=== PATIENT | male | born 1980 | race African-American/Black ===

== ENCOUNTER 2024-09-30 10:20 | Outpatient (CLI) | payer BC, SELFPAY ==
--- NOTE | ~2024-09-30 | XR_ITS ---
Clinical Indication: Shortness of breath PA and lateral views of the chest: Comparison: None Findings: The lungs are clear, without evidence of focal consolidation or pleural effusion. Cardiome diastinal silhouette is within normal limits. Bones and soft tissues are unremarkable. Impression: Normal chest. Reviewed, dictated and finalized at [facility]. Impression: Normal chest.
== END 2024-09-30 10:21 | disposition home or self-care (01) ==
LOC: MICIMG 10:21
PROVIDERS: PCP Family Medicine; Visit Provider Physician Assistant
DX: R06.02 Shortness of breath (principal)
CPT/HCPCS: 71046

== ENCOUNTER 2024-10-15 13:02 | Outpatient (CLI) | payer BC, SELFPAY ==
--- OUTSIDE RECORDS SUMMARY | 2024-10-15 13:15 | XMS_ITS | Referral Summary ---
Author Organization [facility] Address [address] [place] [id number] Care Team Providers Care Air Value Tester Name Role Phone Yimi Mark MD Primary Care Provider Encounters Date Type Department Care Team Description 09/04/2024 8:09 AM CDT - 09/04/2024 10:34 AM T Emergency [facility] Emergency Department [address] [place] [address] [phone] Leg pain, anterior, left (Primary Dx) Discharge Disposition: Discharge to home or self care 09/02/2024 10:48 AM CDT - 09/02/2024 1:41 PM T Emergency [facility] Emergency Department [address] [place] [phone] Wheezing (Primary Dx); Leukocytosis, unspecified type; Elevated blood pressure reading Discharge Disposition: Discharge to home or self care from Last 3 Months Allergies Active Allergy Reactions Criticality Noted Date Comments Shellfish Containing Products Shortness of breath High 07/05/2023 Medications albuterol HFA (PROVENTIL HFA,VENTOLIN HFA,PROAIR HFA) 90 mcg/actuation inhaler Inhale 2 puffs every 4 (four) hours as needed for wheezing 1 each 4 Active fluticasone propionate (FLOVENT HFA) 44 mcg/actuation inhaler Inhale 1 puff daily Rinse mouth with water after use. Do not swallow. 1 each 5 Active amLODIPine (NORVASC) 5 mg tablet Take 1 tablet (5 mg total) by mouth daily 30 tablet 5 03/24/20 26 Active ipratropium-alb uteroL (DUO-NEB) 0.5-2.5 mg/3 mL nebulizer solution Take 3 mL by nebulization every 6 (six) hours as needed for wheezing 30 mL Active ibuprofen (ADVIL,MOTRIN) 800 mg tablet Take 1 tablet (800 mg total) by mouth 3 (three) times a day 21 tablet Active Immunizations Immunization Administration Dates Next Due Tdap 12/01/2022 Social History Tobacco Use Types Packs/Day Years Used Date Smoking Tobacco: Never Assessed Personal Safety Answer Date Recorded Have you ever been in or are you currently in a harmful physical or emotional relationship or is someone making you feel afraid or unsafe? 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 Gender Identity Not on file Sexual Orientation Not on file Last Filed Vital Signs Vital Sign Reading Time Taken Comments Blood Pressure 151/87 09/04/2024 10:00 AM CDT Pulse 55 09/04/2024 10:00 AM CDT Temperature 36.7 C (98 F) 09/04/2024 7:29 AM CDT Respiratory Rate 19 09/04/2024 10:00 AM CDT Oxygen Saturation 97% 09/04/2024 10:00 AM CDT Inhaled Oxygen Concentration - - Weight 128 kg (282 lb 3 oz) 09/04/2024 7:29 AM C DT Height 185.4 cm (6' 1 ) 09/02/2024 8:57 AM CDT Body Mass Index 37.23 09/02/2024 8:57 AM CDT Plan of Treatment Not on file Procedures Procedure Name Priority Date/Time Associated Diagnosis Comments XR TIBIA FIBULA LEFT 2 VIEWS ED 09/04/2024 7:56 AM CDT MANUAL DIFFERENTIAL STAT 09/02/2024 1 0:50 AM CDT EGFR STAT 09/02/2024 10:50 AM CDT TROPONIN T HIGH-SENSITIVITY SERIES (BASELINE, 2HR, 4HR, 6HR) STAT 09/02/2024 10:50 AM CDT COMPREHENSIVE METABOLIC PANEL STAT 09/02/2024 10:50 AM CDT CBC WITH AUTO DIFFERENTIAL STAT 09/02/2024 10:50 AM CDT ECG 12-LEAD Routine 09/02/2024 10:44 AM CDT XR CHEST 1 VIEW ED 09/02/2024 9:20 AM CDT INFLUENZA A/B, RSV, AND COVID-19 PCR STAT 09/02/2024 9:04 AM CDT from Last 3 Months Results * XR Tibia Fibula Left 2 Views (09/04/2024 7:56 AM CDT) Anatomical Region Laterality Modality Lower Extremities, Lower Leg Left Com puted Radiography 09/04/2024 7:59 AM CDT Narrative 09/04/2024 8:22 AM CDT EXAM DESCRIPTION: XR TIBIA FIBULA LEFT 2 VIEWS REASON FOR STUDY: Left lower leg pain from 09/03/2024. TECHNIQUE: AP and lateral views of the left tibia and fibula COMPARISON: None FINDINGS: BONES/JOINTS: No fracture. There is a well-circumscribed 0.9 x 0.4 cm lesion in the distal fibula. No aggressive features are seen. There is an internal chondroid matrix. SOFT TISSUES: Within normal limits. IMPRESSION: No acute osseous abnormality. Well-circumscribed 0.9 x 0.4 cm lesion in the distal fibula with nonaggressive, benign features. This could represent fibrous dysplasia or a old healing osseous fibroma. THIS IS AN ELECTRONICALLY VERIFIED FINAL REPORT 09/04/2024 8:22 AM - Electronically signed by Papi Stewart M.D. LB: LADARIUS Report ID: [id number] Reading Location: [id number] Procedure Note Papi Stewart MD - 09/04/2024 EXAM DESCRIPTION: XR TIBIA FIBULA LEFT 2 VIEWS REASON FOR STUDY: Left lower leg pain from 09/03/2024. TECHNIQUE: AP and lateral views of the left tibia and fibula COMPARISON: None FINDINGS: BONES/JOINTS: No fracture. There is a well-circumscribed 0.9x 0.4 cm lesion in the distal fibula. No aggressive features are seen.There is an internal chondroid matrix. SOFT TISSUES: Within normal limits. IMPRESSION: No acute osseous abnormality. Well-circumscribed 0.9 x 0.4 cm lesion in the distal fibula with nonaggressive, benign features. This could represent fibrous dysplasia ora old healing osseous fibroma. THIS IS AN ELECTRONICALLY VERIFIED FINAL REPORT 09/04/2024 8:22 AM - Electronically signed by Papi Stewart M.D. LB: LADARIUS Report ID: [id number] Reading Location: [place] [address] us Jesus Hernandez DO IMG XR PROCEDURES Final Res ult * Troponin T high-sensitivity series (baseline, 2hr, 4hr, 6hr) (09/02/2024 10:50 AM CDT) [facility] Trop T hs 7 <=22 ng/L Comment: Interpretive Data For further hscTnT resources including the diagnostic algorithm and an aid in interpretation, copy and paste this link: https://nrl.testcatalog.org/show/hsTrop Current Interpretive Data last revised 2020. Testing performed by: [facility], [address] [place] [address]., [id number] Blood 09/02/2024 10:5 0 AM CDT 09/02/2024 10:55 AM CDT us Johanne VALLES LAB BLOOD ORDERABLES Final Resu lt [place] [address] [facility] Department [place] [address] * eGFR (09/02/2024 10:50 AM CDT) Pathologist [facility] [place] eGFR >90 >=60 mL/min/1. 73 m2 Comment: Interpretive Data Reference Interval Normal >/= 90 mL/min/1.73m2 Mildly decreased* 60 - 89 mL/min/1.73m2 Mildly to moderately decreased 45 - 59 mL/min/1.73m2 Moderately to severely decreased 30 - 44 mL/min/1.73m2 Severely decreased 15 - 29 mL/min/1.73m2 Kidney Failure < 15 mL/min/1.73m2 *Relative to young adult level Estimated glomerular filtration rate is determined by the 2020 CKD-EPI equation recommended by the National Kidney Foundation (A Unifying Approach to GFR Estimation: Recommendations of the NKF-ASK Task Force on Reassessing the Inclusion of Race in Diagnosing Kidney Disease, JASN 2020). The CKD-EPI equation should not be used for patients with unstable renal function and has not been validated in children and those over 70. Current interpretive data was last reviewed 2021. Testing performed by: [address] [address] Blood 09/02/2024 10:5 0 AM CDT 09/02/2024 10:55 AM CDT us Johanne VALLES LAB BLOOD ORDERABLES Final Resu lt [place] [address] [facility] Department [place] [address] * (ABNORMAL) CBC with auto differential (09/02/2024 10:50 AM CDT) Pathologist [facility] [place] WBC 17.6(H) 3.8 - 9.9 K/cumm Comment:Testing performed by : [address] [address] Hgb 15.1 13.0 - 17.5 g/dL [place] Comment:Testing performed by : [address] [address] Hct 43.7 38.9 - 50.3 % [place] Comment:Testing performed by : [address] [address] Plt 219 150 - 400 K/cumm [place] Comment:Testing performed by : [address] [address] MPV 10.2 9.1 - 12.3 fL [place] Comment:Testing performed by : [address], [address] RBC 5.32 4.30 - 5.80 M/cumm [place] Comment:Testing performed by : [address], [address] MCV 82.1 81.3 - 96.4 fL [place] Comment:Testing performed by : [address], [address] MCH 28.4 27.1 - 33.3 pg [place] Comment:Testing performed by : [address], [address] MCHC 34.6 32.3 - 35.7 g/dL [place] Comment:Testing performed by : [address], [address] RDW CV 12.1 11.1 - 14.9 % [place] Comment:Testing performed by : [address], [address] RDW SD 36.1 35.7 - 48.1 fL [place] Comment:Testing performed by : [address], [address] NRBC abs 0.02(H) 0.00 - 0.01 K/cumm [place] Comment:Testing performed by : [address], [address] Blood 09/02/2024 10:5 0 AM CDT 09/02/2024 10:55 AM CDT us Johanne VALLES LAB BLOOD ORDERABLES Edited Res ult - Final [place] [address] [facility] Department [place] [address] * (ABNORMAL) Manual Differential (09/02/2024 10:50 AM CDT) Differential Manual Comment:Testing performed by : [address] [address] Cells Counted 100 [facility] Comment:Testing performed by : [address], [place]., [address] Neutrophil abs 5.3 1.5 - 6.5 K/cumm [facility] Comment:Testing performed by : [address], [place]., [address] Imm gran abs 0.0 0.0 - 0.1 K/cumm [facility] Comment:Testing performed by : [address], [place]., [address] Lymphocyte abs 11.6(H) 0.8 - 3.3 K/cumm [facility] Comment:Testing performed by : [address], [place]., [address] Monocyte abs 0.2 0.2 - 0.8 K/cumm [facility] Comment:Testing performed by : [address], [place]., [address] Eosinophil abs 0.5 0.0 - 0.5 K/cumm [facility] Comment:Testing performed by : [address] [address] Neutrophil pct 30.0 % [facility] Comment: Interpretive Data Percent cell count reference ranges are not reported, since discordance with absolute values may lead to misinterpretation of CBC data. Current Interpretive Data was last revised on 2017. Testing performed by: [address] [address] Lymphocyte pct 24.0 % [facility] Comment: Interpretive Data Percent cell count reference ranges are not reported, since discordance with absolute values may lead to misinterpretation of CBC data. Current Interpretive Data was last revised on 2017. Testing performed by: [address] [address] Monocyte pct 1.0 % [facility] Comment: Interpretive Data Percent cell count reference ranges are not reported, since discordance with absolute values may lead to misinterpretation of CBC data. Current Interpretive Data was last revised on 2017. Testing performed by: [address] [address] Eosinophil pct 3.0 % [place] Comment: Interpretive Data Percent cell count reference ranges are not reported, since discordance with absolute values may lead to misinterpretation of CBC data. Current Interpretive Data was last revised on 2017. Testing performed by: [facility], [address] [place] [address], [place]., [address] Variant lymph pct 42.0(H) 0.0 - 0.0 % [place] Comment:Testing performed by : [address], [place]., [address] RBC morphology Consistent with RBC Indicies [place] Comment:Testing performed by : [address] [address] Platelet estimate Adequate [place] Comment:Testing performed by : [address], [place]., [address] Blood 09/02/2024 10:5 0 AM CDT 09/02/2024 10:55 AM CDT us Johanne VALLES LAB BLOOD ORDERABLES Final Resu lt [place] [facility] Department [place] [address] * Comprehensive metabolic panel (09/02/2024 10:50 AM CDT) Sodium 141 135 - 145 mmol/L Comment:Testing performed by : [address] [address] Potassium, pl 4.2 3.3 - 4.9 mmol/L [place] Comment:Testing performed by : [address] [address] Chloride 107 97 - 110 mmol/L [place] Comment:Testing performed by : [address] [address] CO2 27 22 - 32 mmol/L [place] Comment:Testing performed by : [address] [address] Anion gap 7 2 - 15 mmol/L [place] Comment:Testing performed by : [address] [address] BUN 14 6 - 25 mg/dL [place] Comment:Testing performed by : [address] [address] Creatinine 0.92 0.80 - 1.30 mg/dL [place] Comment:Testing performed by : [address] [address] Glucose 112 70 - 199 mg/dL [place] Comment: Interpretive Data Fasting glucose >/= 126 mg/dl is diagnostic for diabetes. Fasting is defined as no caloric intake for at least 8 hours. Fasting glucose between 100 mg/dl to 125 mg/dl is diagnostic of prediabetes. In a patient with classic symptoms of hyperglycemia or hyperglycemic crisis, a random glucose >/= 200 mg/dl is diagnostic for diabetes. In the absence of unequivocal hyperglycemia, results should be confirmed by repeat testing. The classification and Diagnosis of Diabetes Diabetes Care 2021; 46: S19-S40. Current interpretive data was last revised 2022. Testing performed by: [address] [address] Calcium 9.7 8.5 - 10.3 mg/dL [place] Comment:Testing performed by : [address] [address] Bilirubin, total 0.7 0.1 - 1.2 mg/dL [place] Comment:Testing performed by : [address] [address] Protein, pl 7.5 6.5 - 8.5 g/dL [place] Comment:Testing performed by : [address] [address] Albumin 4.5 3.5 - 5.0 g/dL [place] Comment:Testing performed by : [address] [address] Alk phos 75 40 - 130 Units/L [place] Comment:Testing performed by : [address] [address] ALT 13 7 - 55 Units/L [place] Comment:Testing performed by : [address] [address] AST 17 10 - 50 Units/L [place] Comment:Testing performed by : [facility], [address] [place] [address], [place]., [address] Blood 09/02/2024 10:5 0 AM CDT 09/02/2024 10:55 AM CDT Johanne VALLES LAB BLOOD ORDERABLES Final Resu lt Performing Organization Address City/[facility]/ZIP Co de Phone Number [place] [address] [facility] Department [place] [address] * ECG 12 lead (09/02/2024 10:44 AM CDT) Ventricular Rate EKG/Min 79 BPM [facility] Atrial Rate 79 BPM [facility] [place]-Interval (MSEC) 150 ms [facility] QRS-Interval (MSEC) 86 ms [facility] QT-Interval (MSEC) 372 ms [facility] QTc 426 ms [facility] P [place] 66 degrees [facility] R [place] -33 degrees [facility] T [place] 19 degrees [facility] Diagnosis Normal sinus rhythm Left axis deviation . T-wave changes When compared with ECG of 18-APR-2023 11:49, No significant change was found Confirmed by SULTAN TURNER M.D. ([id number]) on 09/02/2024 3:09:57 PM [facility] 09/02/2024 10:4 4 AM CDT 09/02/2024 3:09 PM CDT Johanne VALLES ECG ORDERABLES Final Result Performing Organization Address [facility]/ZIP Co de Phone Number [facility] [employer] [facility] * XR Chest 1 Vw Portable (09/02/2024 9:20 AM CDT) Anatomical Region Laterality Modality Body, Chest N/A Computed Radiogr aphy 09/02/2024 9:30 AM CDT Narrative 09/02/2024 9:31 AM CDT EXAM DESCRIPTION: XR CHEST 1 VIEW REASON FOR STUDY: Shortness of Breath Pt states sob, dizzy, headaches for 2 days TECHNIQUE: Single radiographic view(s) of the chest. COMPARISON: Chest radiograph 07/05/2023 FINDINGS: LUNGS: No focal opacity, pleural effusion, or pneumothorax. HEART/MEDIASTINUM: Cardiac silhouette normal in size. Mediastinal and hilar contours appear normal. LINES/TUBES: None. BONES: No acute osseous abnormality. IMPRESSION: No acute cardiopulmonary abnormality. THIS IS AN ELECTRONICALLY VERIFIED FINAL REPORT 09/02/2024 9:31 AM - Electronically signed by Penny Merchant M.D. FT: FT Report ID: [id number] [place] Location: [id number] Procedure Note Penny Hansen MD - 09/02/2024 EXAM DESCRIPTION: XR CHEST 1 VIEW REASON FOR STUDY: Shortness of Breath Pt states sob, dizzy, headaches for 2 days TECHNIQUE: Single radiographic view(s) of the chest. COMPARISON: Chest radiograph 07/05/2023 FINDINGS: LUNGS: No focal opacity, pleural effusion, or pneumothorax. HEART/MEDIASTINUM: Cardiac silhouette normal in size. Mediastinal andhilar contours appear normal. LINES/TUBES: None. BONES: No acute osseous abnormality. IMPRESSION: No acute cardiopulmonary abnormality. THIS IS AN ELECTRONICALLY VERIFIED FINAL REPORT 09/02/2024 9:31 AM - Electronically signed by Penny Merchant M.D. FT: FT Report ID: [id number] Reading Location: [id number] us Jesus Hernandez DO IMG XR PROCEDURES Final Res ult * Influenza A/B, RSV, and COVID-19 PCR Nasopharyngeal (09/02/2024 9:04 AM CDT) Pathologist [facility] [place] COVID-19 RNA Negative Negative Comment:Testing performed by : [facility], [address] [place] [address], [place]., [address] Influenza A RNA Negative Negative [facility] Comment:Testing performed by : [address] [address] Influenza B RNA Negative Negative [facility] Comment:Testing performed by : [address] [address] RSV RNA Negative Negative [facility] Comment: Interpretive data: Testing performed by [facility]. This test is performed using the [employer] Xpert Xpress CoV-2/Flu/RSV plus assay. This is a multiplex, real-time reverse transcriptase PCR assay intended for the qualitative detection of nucleic acid from SARS-CoV-2, influenza A, influenza B, and respiratory syncytial virus. This assay has been cleared by the [place] Food and Drug administration. The performance characteristics have been verified by the [facility]. Results must be considered in the clinical context, and a negative result does not rule out infection. Interpretive Data last revised 2023 Testing performed by: [address] [address] Nasopharyngeal 09/02/2024 9: 04 AM CDT 09/02/2024 9:09 AM CDT Narrative [facility] - 09/02/2024 9:54 AM CDT Is the Patient experiencing symptoms consistent with COVID?->Yes Jesus Hernandez DO LAB MICROBIOLOGY - GENERAL ORDERABLES Final Result Performing Organization Address City/State/[facility] Co de Phone Number [place] [address] [facility] [place] [address] from Last 3 Months Insurance [facility] Care Teams Air Value Tester Relationship Specialty Start Date End Date Yimi Mark MD [address] [facility] [address] [place] [address] PCP - General Family Medicine 12/01/22
--- OUTSIDE RECORDS SUMMARY | 2024-10-15 13:15 | XMS_ITS | Clinical Summary ---
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 Role Phone Yimi Mark MD Primary Care Provider Allergies Active Allergy Reactions Criticality Noted Date [...] total) by mouth daily 30 tablet 5 09/03/19 26 Active ipratropium-alb uteroL (DUO-NEB) 0.5-2.5 mg/3 mL nebulizer solution Take 3 mL by nebulization every 6 (six) hours as needed for wheezing 30 mL 5 Active ibuprofen (ADVIL,MOTRIN) 800 mg tablet Take 1 tablet (800 mg total) by mouth 3 (three) times a day 21 tablet 5 Active Encounters Date Type Department Care Team Description 09/04/2024 8:09 AM CDT - 09/04/2024 10:34 AM CDT Emergency [facility] Emergency Department [address] [place] [address] Leg pain, anterior, left (Primary Dx) Discharge Disposition: Discharge to home or self care 09/02/2024 10:48 AM CDT - 09/02/2024 1:41 PM CDT Emergency [facility] Emergency Department [address] [place] [address] [phone] Wheezing (Primary Dx); Leukocytosis, unspecified type; Elevated blood pressure reading Discharge Disposition: Discharge to home or self care from Last 3 Months Immunizations Immunization Administration Dates Next Due Tdap [...] on file 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 Gender Identity Not on file Sexual Orientation [...] (282 lb 3 oz) 09/04/2024 7:29 AM CDT Height 185.4 cm (6' 1 ) 09/02/2024 8:57 AM CDT Body Mass Index 37.23 09/02/2024 8:57 AM CDT Plan of Treatment Health Maintenance Due Date Last Done Comments Depression Screening 1981 Hepatitis C Screening 1981 Prostate Cancer Screening-PSA 1981 Varicella Vaccines (1 of 2 - 13+ 2-dose series) 1994 Hepatitis B Screening 11/12/1999 Regular Well Visit/Exam 18-64 11/12/1999 Influenza Vaccine (Season Ended) 2025 DTaP/Tdap/Td Vaccine (6 - Td or Tdap) 12/01/2032 12/01/2022, 12/17/1985, 10/26/1983, Additional history exists HPV Vaccines Aged Out No longer eligi ble based on patient's age to complete this topic Pneumococcal vaccine <65 Aged Out No longer eligible based on patient's age to complete this topic Procedures Procedure Name Priority Date/Time Associated Diagnosis [...] Papi Stewart M.D. LB: LADARIUS Report ID: [id number] Reading Location: [id number] Procedure Note Papi Stewart MD - 09/04/2024 [...] Electronically signed by Papi Stewart M.D. LB: LADARUIS Report ID: [id number] Reading Location: [id number] us Jesus Hernandez DO IMG XR PROCEDURES Final Res ult * Troponin T high-sensitivity series (baseline, 2hr, 4hr, 6hr) (09/02/2024 10:50 AM CDT) Trop T hs 7 <=22 ng/L Comment: Interpretive Data For further hscTnT resources including the diagnostic algorithm and an aid in interpretation, copy and paste this link: https://nrl.testcatalog.org/show/hsTrop Current Interpretive Data last revised 2020. Testing performed by: [address] [address] Blood 09/02/2024 10:5 0 AM CDT 09/02/2024 10:55 AM CDT Johanne VALLES LAB BLOOD ORDERABLES Final Resu lt Performing Organization Address City/[facility]/ZIP Co de Phone Number ANDREW [address] [place] [address] * eGFR (09/02/2024 10:50 AM CDT) eGFR >90 >=60 mL/min/1. 73 m2 Comment: [...] was last reviewed 2021. Testing performed by: [address] [address] Blood 09/02/2024 10:5 0 AM CDT 09/02/2024 10:55 AM CDT Johanne VALLES LAB BLOOD ORDERABLES Final Resu lt ANDREW [address] [place] [address] * (ABNORMAL) CBC with auto differential (09/02/2024 10:50 AM CDT) [facility] Signature WBC 17.6(H) 3.8 - 9.9 K/cumm Comment:Testing performed by : [address] [address] Hgb 15.1 13.0 - 17.5 g/dL ANDREW Comment:Testing performed by : [address], [address] Hct 43.7 38.9 - 50.3 % ANDREW Comment:Testing performed by : [address], [address] Plt 219 150 - 400 K/cumm ANDREW Comment:Testing performed by : [address], [address] MPV 10.2 9.1 - 12.3 fL ANDREW Comment:Testing performed by : [address], [address] RBC 5.32 4.30 - 5.80 M/cumm ANDREW Comment:Testing performed by : [address], [address] MCV 82.1 81.3 - 96.4 fL ANDREW Comment:Testing performed by : [address], [address] MCH 28.4 27.1 - 33.3 pg ANDREW Comment:Testing performed by : [address], [address] MCHC 34.6 32.3 - 35.7 g/dL ANDREW Comment:Testing performed by : [address], [address] RDW CV 12.1 11.1 - 14.9 % ANDREW Comment:Testing performed by : [address], [address] RDW SD 36.1 35.7 - 48.1 fL ANDREW Comment:Testing performed by : [address], [address] NRBC abs 0.02(H) 0.00 - 0.01 K/cumm ANDREW Comment:Testing performed by : [address] [address] Blood 09/02/2024 10:5 0 AM CDT 09/02/2024 10:55 AM CDT us Johanne VALLES LAB BLOOD ORDERABLES Edited Res ult - Final ANDREW [address] [facility] Department [place] [address] * (ABNORMAL) Manual Differential (09/02/2024 10:50 AM CDT) Differential Manual Comment:Testing performed by : [address] [address] Cells Counted 100 ANDREW Comment:Testing performed by : [address] [address] Neutrophil abs 5.3 1.5 - 6.5 K/cumm ANDREW Comment:Testing performed by : [address] [address] Imm gran abs 0.0 0.0 - 0.1 K/cumm ANDREW Comment:Testing performed by : [address] [address] Lymphocyte abs 11.6(H) 0.8 - 3.3 K/cumm ANDREW Comment:Testing performed by : [address] [address] Monocyte abs 0.2 0.2 - 0.8 K/cumm ANDREW Comment:Testing performed by : [address] [address] Eosinophil abs 0.5 0.0 - 0.5 K/cumm ANDREW Comment:Testing performed by : [address] [address] Neutrophil pct 30.0 % ANDREW Comment: Interpretive Data Percent cell count reference ranges are not reported, since discordance with absolute values may lead to misinterpretation of CBC data. Current Interpretive Data was last revised on 2017. Testing performed by: [address] [address] Lymphocyte pct 24.0 % ANDREW Comment: Interpretive Data Percent cell count reference ranges are not reported, since discordance with absolute values may lead to misinterpretation of CBC data. Current Interpretive Data was last revised on 2017. Testing performed by: [address] [address] Monocyte pct 1.0 % ANDREW Comment: Interpretive Data Percent cell count reference ranges are not reported, since discordance with absolute values may lead to misinterpretation of CBC data. Current Interpretive Data was last revised on 2017. Testing performed by: [address] [address] Eosinophil pct 3.0 % ANDREW Comment: Interpretive Data Percent cell count reference ranges are not reported, since discordance with absolute values may lead to misinterpretation of CBC data. Current Interpretive Data was last revised on 2017. Testing performed by: [address] [address] Variant lymph pct 42.0(H) 0.0 - 0.0 % ANDREW Comment:Testing performed by : [address] [address] RBC morphology Consistent with RBC Indicies ANDREW Comment:Testing performed by : [address] [address] Platelet estimate Adequate ANDREW Comment:Testing performed by : [address] [address] Blood 09/02/2024 10:5 0 AM CDT 09/02/2024 10:55 AM CDT us Johanne VALLES LAB BLOOD ORDERABLES Final Resu lt ANDREW [place] [address] [facility] Department [place] [address] * Comprehensive metabolic panel (09/02/2024 10:50 AM CDT) Sodium 141 135 - 145 mmol/L Comment:Testing performed by : [facility], [address] [place] [address], [place]., [address] Potassium, pl 4.2 3.3 - 4.9 mmol/L ANDREW Comment:Testing performed by : [address], [place]., [address] Chloride 107 97 - 110 mmol/L ANDREW Comment:Testing performed by : [address], [place]., [address] CO2 27 22 - 32 mmol/L ANDREW Comment:Testing performed by : [address], [place]., [address] Anion gap 7 2 - 15 mmol/L ANDREW Comment:Testing performed by : [address], [place]., [address] BUN 14 6 - 25 mg/dL ANDREW Comment:Testing performed by : [address], [place]., [address] Creatinine 0.92 0.80 - 1.30 mg/dL ANDREW Comment:Testing performed by : [address], [place]., [address] Glucose 112 70 - 199 mg/dL [facility] Comment: Interpretive Data Fasting glucose >/= 126 [...] classification and Diagnosis of Diabetes Diabetes Care 202; 46: S19-S40. Current interpretive data was last revised 2022. Testing performed by: [address] [address] Calcium 9.7 8.5 - 10.3 mg/dL ANDREW Comment:Testing performed by : [address], [place]., [address] Bilirubin, total 0.7 0.1 - 1.2 mg/dL ANDREW Comment:Testing performed by : [address], [place]., [address] Protein, pl 7.5 6.5 - 8.5 g/dL ANDREW Comment:Testing performed by : [address] [address] Albumin 4.5 3.5 - 5.0 g/dL ANDREW Comment:Testing performed by : [address] [address] Alk phos 75 40 - 130 Units/L ANDREW Comment:Testing performed by : [address], [address] ALT 13 7 - 55 Units/L ANDREW Comment:Testing performed by : [address] [address] AST 17 10 - 50 Units/L ANDREW Comment:Testing performed by : [address] [address] Blood 09/02/2024 10:5 0 AM CDT 09/02/2024 10:55 AM CDT us Johanne VALLES LAB BLOOD ORDERABLES Final Resu lt ANDREW [address] [facility] Department [place] [address] * ECG 12 lead (09/02/2024 10:44 AM CDT) Ventricular Rate EKG/Min 79 BPM [facility] Atrial Rate 79 BPM [facility] ID-Interval (MSEC) 150 ms [facility] QRS-Interval (MSEC) 86 ms [facility] QT-Interval (MSEC) 372 ms [facility] QTc 426 ms [facility] P [place] 66 degrees [facility] R [place] -33 degrees [facility] T [place] 19 degrees [facility] Diagnosis Normal sinus rhythm Left axis deviation . T-wave changes When compared with ECG of 18-APR-2023 11:49, No significant change was found Confirmed by SULTAN TURNER M.D. ([id number]) on 09/02/2024 3:09:57 PM [facility] 09/02/2024 10:4 4 AM CDT 09/02/2024 3:09 PM CDT Johanne Fernández REENA ECG ORDERABLES Final Result [facility] * XR Chest 1 Vw Portable (09/02/2024 [...] Penny Merchant M.D. FT: FT Report ID: [id number] Reading Location: [place] [address] Procedure Note Penny Hansen MD - 09/02/2024 [...] Penny Merchant M.D. FT: FT Report ID: [id number] Reading Location: [id number] Jesus Hernandez DO IMG XR PROCEDURES Final Res ult * Influenza A/B, RSV, and COVID-19 PCR Nasopharyngeal (09/02/2024 9:04 AM CDT) COVID-19 RNA Negative Negative Comment:Testing performed by : [address], [address] Influenza A RNA Negative Negative ANDREW Comment:Testing performed by : [address], [address] Influenza B RNA Negative Negative ANDREW Comment:Testing performed by : [address], [address] RSV RNA Negative Negative ANDREW Comment: Interpretive data: Testing performed by [facility]. This test is performed using the [employer] Xpert Xpress CoV-2/Flu/RSV plus assay. This is a multiplex, real-time reverse transcriptase PCR assay intended for the qualitative detection of nucleic acid from SARS-CoV-2, influenza A, influenza B, and respiratory syncytial virus. This assay has been cleared by the [place] Food and Drug administration. The performance characteristics have been verified by the [facility]. Results must be considered in the clinical context, and a negative result does not rule out infection. 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
--- OUTSIDE RECORDS SUMMARY | 2024-10-15 13:15 | XMS_ITS | Data Portability ---
Author Organization Rhiannon SAUCEDO Address [address] [place] [address] Assessment No assessment recorded. Plan of Treatment Reminders Order Date Submit Date Provider Last Modified By Organization Details Last Modified Time Details Appointments None recorde d. Lab lipid panel, serum 2021 022 [facility], [address] [place] [address], [address], [place], [address], 09:08:25 BMP, serum or plasma 2021 022 [facility], [address] [place] [address], [address], [place], [address], 09:08:24 Referral pulmono logist referra l 2021 022 [facility], [address] [place] [address] , [address], [place], [address], 16:34:15 Procedures None recorde d. Surgeries None recorde d. Imaging None recorde d. Medication Orders None recorde d. Patient TargetsNo targets recorded. Patient Instructions Encounter Date Encounter Id Patient Instructions Last Modified By Organization Details Last Modified Time 11/23/2021 [id number] A healthy lifestyle: care instructions [email or web address] Not available 11/23/2021 15:42:20 pulmonary function test* ATHENAFAX Not available 11/25/2021 09:55:17 I was present an d available in the Family Medicine clinic to discuss this patient's care for the duration of the appointment. I agree with the resident's assessment and plan as documented with the following addendum: None. Dr. Malachi Live MD Attending Physician, [facility]. 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 Referring Physician: Jayro Parker, Hazmat Cdl Driver, Encounter Date: 11/23/2021 Results Created Date Observation Date Name Description Value Unit Range Abnormal Flag Note LastModifiedBy Organization Detail LastModifiedTime 11/28/19 22 11/28/2021 BASIC METAB OLIC PANEL (8) glucose 103 mg/dL 65-99 above high normal Not Available [facility] ([facility] [address] [place], [address], 11/28/2021 09:08:24 11/28/19 22 11/28/2021 BASIC METAB OLIC PANEL (8) BUN 18 mg/dL 6-24 Not Available [facility] ([facility] [address] [place], [address], 11/28/2021 09:08:24 11/28/19 22 11/28/2021 BASIC METAB OLIC PANEL (8) creatinine 0.97 mg/dL 0.76-1 .27 Not Available [facility] ([facility]) [address] [place], [address], 11/28/2021 09:08:24 11/28/19 22 11/28/2021 BASIC METAB OLIC PANEL (8) eGFR 101 mL/mi n/1.7 3 >59 Not Available [facility] ([facility]) [address] [place], [address], 11/28/2021 09:08:24 11/28/19 22 11/28/2021 BASIC METAB OLIC PANEL (8) BUN/creatini ne ratio 19 9-20 Not Available [facility] ([facility]) [address] [place], [address], 11/28/2021 09:08:24 11/28/19 22 11/28/2021 BASIC METAB OLIC PANEL (8) sodium 140 mmol/ L 134-14 4 Not Available [facility] ([facility]) [address] [place], [address], 11/28/2021 09:08:24 11/28/19 22 11/28/2021 BASIC METAB OLIC PANEL (8) potassium 4.2 mmol/ L 3.5-5. 2 Not Available [facility] ([facility]) [address] [place], [address], 11/28/2021 09:08:24 11/28/19 22 11/28/2021 BASIC METAB OLIC PANEL (8) chloride 101 mmol/ L 96-106 Not Available [facility] ([facility]) [address] [place], [address], 11/28/2021 09:08:24 11/28/19 22 11/28/2021 BASIC METAB OLIC PANEL (8) carbon dioxide, total 26 mmol/ L 20-29 Not Available [facility] ([facility]) [address] [place], [address], 11/28/2021 09:08:24 11/28/19 22 11/28/2021 BASIC METAB OLIC PANEL (8) calcium 9.7 mg/dL 8.7-10 .2 Not Available [facility] ([facility]) [address] [place], [address], 11/28/2021 09:08:24 11/28/19 22 11/28/2021 LIPID PANEL cholesterol, total 159 mg/dL 100-19 9 Not Available [facility] ([facility]) [address] [place], [address], 11/28/2021 09:08:25 11/28/19 22 11/28/2021 LIPID PANEL triglyceride s 78 mg/dL 0-149 Not Available [facility] ([facility]) [address] [facility] [place], [address], 11/28/2021 09:08:25 11/28/19 22 11/28/2021 LIPID PANEL HDL cholesterol 35 mg/dL >39 below low normal Not Available [facility] ([facility]) [address] [facility] [place], [address], 11/28/2021 09:08:25 11/28/19 22 11/28/2021 LIPID PANEL VLDL cholesterol molly 15 mg/dL 5-40 Not Available [facility] ([facility]) [address] [facility] [place], [address], 11/28/2021 09:08:25 11/28/19 22 11/28/2021 LIPID PANEL LDL chol calc ([facility]) 109 mg/dL 0-99 above high normal Not Available [facility] ([facility]) [address] [place], [address], 11/28/2021 09:08:25 11/28/19 22 11/28/2021 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 Not Available [facility] ([facility]) [address] [place], [address], 11/28/2021 09:08:25 11/28/19 22 11/28/2021 CARDI OVASC ULAR REPOR T pdf . Not Available [facility] ([facility]) [address] [place], [address], 11/28/2021 09:08:25 Result Notes None recorded. Medical Equipment None Reported. Allergies Allergen ID Allergen Name Allergen Category Reaction Reaction Severity Criticality Documentation Date Start Date Code Code System Note Provider Name and Address Organization Details Recorded Time [id number] albuterol medicatio n other Not available Not available 11/23/2021 435 RxNorm Pt state s that it cause s his throa t to be sore. [facility] 14:39:55 Medications Name Sig Start Date Stop Date Status Note LastModified by Organization Details LastModified Time prednisone 50 mg tablet TAKE 1 TABLET BY MOUTH ONCE DAILY active Not Available Not Available No t Available albuterol sulfate HFA 90 mcg/actuatio n aerosol inhaler INHALE 2 PUFFS BY MOUTH EVERY 4 HOURS NEEDED FOR WHEEZING active Not Available Not Available No t Available Vitals Date Recorded Body height Body mass index (BMI) Body weight Heart rate Oxygen saturation Oxygen saturation in Arterial blood by Pulse oximetry Body temperature Respiratory rate Systolic blood pressure Diastolic blood pressure Provider Name and Address Organization Details Last Updated DateTime 185.42 cm 37.8 kg/m2 047033. 22 g 76 /min 95 % 95 % 99.3 [degF] 18 /min 152 mm[Hg] 94 mm[Hg] Radha Cole MA [facility] 2 14:46:10 Date Recorded Systolic blood pressure Diastolic blood pressure Provider Name and Address Organization Details Last Updated DateTime 11/23/2021 140 mm[Hg] 90 mm[Hg] Lissaadi [facility] 2021 16:04:27 Social History Question Answer Notes LastModified by Organizat ion Details LastModified Time Tobacco Smoking Status Former Smoker Currently smokes marijuana [facility] 11/23/2021 14:41:21 What Is Your Level Of Alcohol Consumption? Occasional Information not available 11/23/2021 What Was The Date Of Your Most Recent Tobacco Screening? 11/23/2021 Information not available 11/23/2021 At What Age Did You Start Smoking Tobacco? 16 Information not available 11/23/2021 How Many Years Have You Smoked Tobacco? 25 Pt States That He Smoked off And On Information not available 11/23/2021 Do You Or Have You Ever Used Any Other Forms Of Tobacco Or Nicotine? No Information not available 11/23/2021 Sex: Unknown Functional Status None recorded. Mental Status None recorded. Family History Nothing Reported. Medical History No medical history recorded. Past Encounters Encounter ID Performer Location Encounter Start Date Encounter Closed Date Diagnosis/Indication Diagnosis SNOMED-CT Code Diagnosis ICD10 Code Diagnosis Note [id number] DALLAS SILVA MD [facility] [address] [facility] [address] [place] [address] 11/23/2021 14:29:08 11/24/2021 10:07:52 Dyspnea 829460108 R06.00 Pt was recently told he has COPD during an ER visit. No hx of asthma, emphysema, or bronchitis . No PFT done before. Does not use inhalers. Very low suspicion for actual diagnosis of COPD.- PFT- refer to see a pulmonolog ist for PFT and sleep study Family his tory of diabetes mellitus 122768771 Z83.3 Family hx positive for DM in both parents. Pt is a risk of having it especially with his obesity.- Pt was consulted on exercise and diet. 30 mins workouts, 5 times a week, and DASH or Mediterran emilie diet is recommende d.- Provided A healthy lifestyle care instructio ns- Encouraged pt to continue to lose 1-2 lbs per weeks- Check lipid panel and BMP Obesity 028548263 E66.9 Pt in action stage of change:- Discussed risks of obesity with pt to include CAD, DM2, and JARED.- Pt is/ is not candidate for bariatric surgery (>40 BMI w/o obesity-re lated comorbidit ies (HTN, hyperlipid emia, JARED, symptomati c OA), >35 with comorbidit ies).- Recommend daily exercise, 150 mins/week. Recommend healthy food choices. Provided handout.- RTC in 6 months to evaluate for progress on weight loss. Elevated blood-pressure reading without diagnosis of hypertension 221668804 R03.0 Pt had 2 elevated blood pressure reading during this visit. No hx of HTN. No family hx of HTN. Pt states he was feeling anxious about today's visit.- W Sleep yoshi ya disturbance 07391096 G47.9 STOP BANG score of 5. Highly suggestive of JARED.As above Health Concerns Section Related Observation LastModified by Organization Detai ls LastModified Time None Recorded Concern Status LastModified by Organization Details LastModified Time None Recorded Advance Directives Directive None Recorded Payers Encounter Date Sequence Insurance Name Policy Number Policy Mueller Covered Member ID Mueller Member ID Guarantor Name 11/23/2021 1 [facility]: (PPO) [id number] Ramana Hernandez [id number] Ramana Hernandez Notes Date Note Type Note Provider Name and Address Organization Details Recorded Time 11/23/2021 text/html New patient to clinic presents to establish care. Voices the following complaints, concerns, questions:- COPD Exacerbation?Pt was recently hospitalized at [facility] for COPD exacerbation about 2 week ago. He endorses SOB. He was discharged with albuterol and prednisone 50 mg x5 days. He has not used his inhaler since sd. He is feeling well today. has mild sore throat. No previous hx of COPD. Has never had PFT or used inhaler before. States his breathing is worse when he gains more weight. - STOP BANG score of 5, high risk of JARED.postive for tiredness, high BP, BMI > 35, neck circumfrance, and being male. PMHx: noneSurgeHx: noneMeds: albuterol prnAllergies: shelfishFam Hx: DM in paternal GM, DM in both parentsSmoking: hx of smoking black and mild and marijuanaAlcohol: 4-5 drinks, 2-3 times/a weekSubstance: marijuana MALACHI LIVE MD Attn: Accounting,[address] [facility], [place], [address], [facility] 12/01/2021 11:44:13
--- NOTE | 2024-10-16 13:08 | P.PCNPFT_ITS ---
PFT Procedure Performed PFT Procedure Performed Spirometry with Pre/Post Bronchodilator Plethysmography (Lung Vol) Diffusing Cap (DLCO) Flow Vol Loop PFT Interpretation This is a pulmonary function test with pre and post-bronchodilator spirometry, plethysmography and diffusing capacity. The test was performed and results interpreted in accordance with the 2019 and 2005 ATS/ERS Task Force guidelines respectively using the Global Lung Function Initiative-2012 reference equations. Patient demonstrated good effort and cooperation. Reproducibility criteria were met. The quality of the pre bronchodilator spirometry maneuver was Grade A and post bronchodilator spirometry maneuver was Grade A. Findings: Spirometry: There is decreased maximal expiratory airflow at all lung volumes. The contour the inspiratory flow tracing is normal. The pre bronchodilator FVC is 3.96 L, 82% predicted. The pre bronchodilator FEV1 is 2.48 L, 64% predicted. The pre bronchodilator FEV1: FVC ratio 63%. The post bronchodilator FVC is 4.11 L, representing a 4% increase. The post bronchodilator FEV1 is 2.54 L, rep resenting a 2% increase. The post bronchodilator FEV1: FVC ratio 62%. Plethysmography: The total lung capacity is 5.42 L, 82% predicted. Functional residual capacity is 2.32 L, 65% predicted. The residual volume is 1.46 L, 78% predicted. Diffusing capacity: The diffusing capacity unadjusted for hemoglobin and carboxyhemoglobin is 26.3, 78% predicted. The diffusing capacity adjusted for alveolar volume is 4.68, 101% predicted. Impression: There is a moderate obstructive abnormality. There is no significant improvement after inhaling a single dose of albuterol. The lung volumes are normal. The diffusing capacity is normal. There are no prior studies for comparison
== END 2024-10-15 13:03 | disposition home or self-care (01) ==
LOC: ANHPFT 13:04
PROVIDERS: PCP Family Medicine; Visit Provider Physician Assistant
DX: R94.2 Abnormal results of pulmonary function studies (principal); R06.02 Shortness of breath; R06.2 Wheezing
CPT/HCPCS: 94060; 94726; 94729

== ENCOUNTER 2024-11-22 15:10 | Outpatient (CLI) | payer OTHER, SELFPAY ==
--- NOTE | ~2024-11-22 | MR_ITS ---
MRI of the left lower extremity CLINICAL HISTORY: Contusion TECHNIQUE: T1-weighted and STIR images were performed in the axial, coronal, and sagittal planes of t he left calf. FINDINGS: Bone marrow signals are unremarkable. No fracture or bone marrow edema. No evidence for ost eomyelitis. No evidence of medial tibial stress syndrome. No periosteal reaction seen. There is mild edematous change of the distal soleus muscle belly. There is a somewhat curvilinear are a of low signal with mild central hyperintensity at the distal psoas muscle belly (axial image 49, se teresa 7 image 18), which could reflect small evolving intramuscular hematoma. Remaining musculature is unremarkable. Visualized tendons are intact. There is mild subcutaneous soft tissue edema medially. IMPRESSION: Mild edematous change of the distal psoas muscle suggest as described muscle strain or contusion. The re is a irregular density within the distal psoas muscle with peripheral curvilinear hypointensity an d central hyperintensity, suggestive of evolving intramuscular hematoma. Tendons are intact. No osseous abnormality seen. Reviewed, dictated and finalized at location . IMPRESSION: Mild edematous change of the distal psoas muscle suggest as described muscle st rain or contusion. There is a irregular density within the distal psoas muscle with peripheral curvilinear hypointensity and central hyperintensity, suggestiv e of evolving intramuscular hematoma. Tendons are intact. No osseous abnormality seen.
--- OUTSIDE RECORDS SUMMARY | 2024-11-22 15:16 | XMS_ITS | Clinical Summary ---
Author Organization [facility] Address [address] [place] [id number] Care Team Providers Care Replenisher Name Role Phone Yimi Mark MD Primary [...] CDT - 09/04/2024 10:34 AM CDT Emergency [facility] Emergency Department [address] [place] [address] Leg pain, anterior, left (Primary Dx) Discharge Disposition: Discharge to home or self care 09/02/2024 10:48 AM CDT - 09/02/2024 1:41 PM CDT Emergency [facility] Emergency Department [address] [place] [id number] Wheezing (Primary Dx); Leukocytosis, unspecified type; Elevated [...] on file Legal Sex Male 6:[address] [employer] Gender Identity Not on file Sexual Orientation [...] AM C DT Height 185.4 cm (6' 1) 09/02/2024 8:57 AM CDT Body Mass Index [...] Papi Stewart M.D. LB: LADARIUS Report ID: [id number] Reading Location: [id number] Procedure Note Papi Stewart MD - 09/04/2024 [...] Papi Stewart M.D. LB: LADARIUS Report ID: [id number] Reading Location: [id number] us Jesus Hernandez DO IMG XR PROCEDURES Final Res ult * Troponin T high-sensitivity series (baseline, 2hr, 4hr, 6hr) (09/02/2024 10:50 AM CDT) Trop T hs 7 <=22 ng/L Comment: Interpretive Data For further hscTnT resources including the diagnostic algorithm and an aid in interpretation, copy and paste this link: https://nrl.testcatalog.org/show/hsTrop Current Interpretive Data last revised 2020. Testing performed by: [address] [address] Blood 09/02/2024 10:5 0 AM CDT 09/02/2024 10:55 AM CDT Johanne VALLES LAB BLOOD ORDERABLES Final Resu lt Performing Organization Address City/[facility]/ZIP Co de Phone Number ANDREW [address] [place] [email or web address] [address] * eGFR (09/02/2024 10:50 AM CDT) eGFR [...] was last reviewed 2021. Testing performed by: [address] [address] Blood 09/02/2024 10:5 0 AM CDT 09/02/2024 10:55 AM CDT Johanne VALLES LAB BLOOD ORDERABLES Final Resu lt ANDREW [address] [place] [email or web address] [address] * (ABNORMAL) CBC with auto differential (09/02/2024 10:50 AM CDT) [facility] Signature WBC 17.6(H) 3.8 - 9.9 K/cumm Comment:Testing performed by : [address] [address] Hgb 15.1 13.0 - 17.5 g/dL ANDREW Comment:Testing performed by : [address], [address] Hct 43.7 38.9 - 50.3 % ANDREW Comment:Testing performed by : [address], [address] Plt 219 150 - 400 K/cumm ANDREW Comment:Testing performed by : [address], [address] MPV 10.2 9.1 - 12.3 fL ANDREW Comment:Testing performed by : [address], [address] RBC 5.32 4.30 - 5.80 M/cumm ANDREW Comment:Testing performed by : [address], [address] MCV 82.1 81.3 - 96.4 fL ANDREW Comment:Testing performed by : [address], [address] MCH 28.4 27.1 - 33.3 pg ANDREW Comment:Testing performed by : [address], [address] MCHC 34.6 32.3 - 35.7 g/dL ANDREW Comment:Testing performed by : [address], [address] RDW CV 12.1 11.1 - 14.9 % ANDREW Comment:Testing performed by : [address], [address] RDW SD 36.1 35.7 - 48.1 fL ANDREW Comment:Testing performed by : [address], [address] NRBC abs 0.02(H) 0.00 - 0.01 K/cumm ANDREW Comment:Testing performed by : [address] [address] Blood 09/02/2024 10:5 0 AM CDT 09/02/2024 10:55 AM CDT us Johanne VALLES LAB BLOOD ORDERABLES Edited Res ult - Final ANDREW [address] [facility] Department [place] [address] * (ABNORMAL) Manual Differential (09/02/2024 10:50 AM CDT) Differential Manual Comment:Testing performed by : [address] [address] Cells Counted 100 ANDREW Comment:Testing performed by : [address] [address] Neutrophil abs 5.3 1.5 - 6.5 K/cumm ANDREW Comment:Testing performed by : [address] [address] Imm gran abs 0.0 0.0 - 0.1 K/cumm ANDREW Comment:Testing performed by : [address] [address] Lymphocyte abs 11.6(H) 0.8 - 3.3 K/cumm ANDREW Comment:Testing performed by : [address] [address] Monocyte abs 0.2 0.2 - 0.8 K/cumm ANDREW Comment:Testing performed by : [address] [address] Eosinophil abs 0.5 0.0 - 0.5 K/cumm ANDREW Comment:Testing performed by : [address] [address] Neutrophil pct 30.0 % ANDREW Comment: Interpretive Data Percent cell count reference ranges are not reported, since discordance with absolute values may lead to misinterpretation of CBC data. Current Interpretive Data was last revised on 2017. Testing performed by: [address] [address] Lymphocyte pct 24.0 % ANDREW Comment: Interpretive Data Percent cell count reference ranges are not reported, since discordance with absolute values may lead to misinterpretation of CBC data. Current Interpretive Data was last revised on 2017. Testing performed by: [address] [address] Monocyte pct 1.0 % ANDREW Comment: Interpretive Data Percent cell count reference ranges are not reported, since discordance with absolute values may lead to misinterpretation of CBC data. Current Interpretive Data was last revised on 2017. Testing performed by: [address] [address] Eosinophil pct 3.0 % ANDREW Comment: Interpretive Data Percent cell count reference ranges are not reported, since discordance with absolute values may lead to misinterpretation of CBC data. Current Interpretive Data was last revised on 2017. Testing performed by: [address] [address] Variant lymph pct 42.0(H) 0.0 - 0.0 % ANDREW Comment:Testing performed by : [address] [address] RBC morphology Consistent with RBC Indicies ANDREW Comment:Testing performed by : [address] [address] Platelet estimate Adequate ANDREW Comment:Testing performed by : [address] [address] Blood 09/02/2024 10:5 0 AM CDT 09/02/2024 10:55 AM CDT us Johanne VALLES LAB BLOOD ORDERABLES Final Resu lt ANDREW [place] [address] [facility] Department [place] [address] * Comprehensive metabolic panel (09/02/2024 10:50 AM CDT) Sodium 141 135 - 145 mmol/L Comment:Testing performed by : [facility], [address] [place] [address], [place]., [address] Potassium, pl 4.2 3.3 - 4.9 mmol/L ANDREW Comment:Testing performed by : [address], [place]., [address] Chloride 107 97 - 110 mmol/L ANDREW Comment:Testing performed by : [address], [place]., [address] CO2 27 22 - 32 mmol/L ANDREW Comment:Testing performed by : [address], [place]., [address] Anion gap 7 2 - 15 mmol/L ANDREW Comment:Testing performed by : [address], [place]., [address] BUN 14 6 - 25 mg/dL ANDREW Comment:Testing performed by : [address], [place]., [address] Creatinine 0.92 0.80 - 1.30 mg/dL ANDREW Comment:Testing performed by : [address], [place]., [address] Glucose 112 70 - 199 mg/dL [facility] Comment: Interpretive Data Fasting glucose >/= [...] was last revised 2022. Testing performed by: [address] [address] Calcium 9.7 8.5 - 10.3 mg/dL ANDREW Comment:Testing performed by : [address], [place]., [address] Bilirubin, total 0.7 0.1 - 1.2 mg/dL ANDREW Comment:Testing performed by : [address], [place]., [address] Protein, pl 7.5 6.5 - 8.5 g/dL ANDREW Comment:Testing performed by : [address] [address] Albumin 4.5 3.5 - 5.0 g/dL ANDREW Comment:Testing performed by : [address] [address] Alk phos 75 40 - 130 Units/L ANDREW Comment:Testing performed by : [address], [address] ALT 13 7 - 55 Units/L ANDREW Comment:Testing performed by : [address] [address] AST 17 10 - 50 Units/L ANDREW Comment:Testing performed by : [address] [address] Blood 09/02/2024 10:5 0 AM CDT 09/02/2024 10:55 AM CDT us Johanne VALLES LAB BLOOD ORDERABLES Final Resu lt ANDREW [address] [facility] Department [place] [address] * ECG 12 lead (09/02/2024 10:44 AM CDT) Ventricular Rate EKG/Min 79 BPM [facility] Atrial Rate 79 BPM [facility] IN-Interval (MSEC) 150 ms [facility] QRS-Interval (MSEC) 86 ms [facility] QT-Interval (MSEC) 372 ms [facility] QTc 426 ms [facility] P [place] 66 degrees [facility] R [place] -33 degrees [facility] T [place] 19 degrees [facility] Diagnosis Normal sinus rhythm Left axis deviation . T-wave changes When compared with ECG of 18-APR-2023 11:49, No significant change was found Confirmed by SULTAN TURNER M.D. ([id number]) on 09/02/2024 3:09:57 PM [facility] 09/02/2024 10:4 4 AM CDT 09/02/2024 3:09 PM CDT Johanne Fernández REENA ECG ORDERABLES Final Result [facility] * XR Chest 1 Vw Portable (09/02/2024 [...] Penny Merchant M.D. FT: FT Report ID: [id number] Reading Location: [place] [address] Procedure Note Penny Hansen MD - 09/02/2024 [...] Penny Merchant M.D. FT: FT Report ID: [id number] Reading Location: [id number] Jesus Hernandez DO IMG XR PROCEDURES Final Res ult * Influenza A/B, RSV, and COVID-19 PCR Nasopharyngeal (09/02/2024 9:04 AM CDT) COVID-19 RNA Negative Negative Comment:Testing performed by : [address], [address] Influenza A RNA Negative Negative ANDREW Comment:Testing performed by : [address], [address] Influenza B RNA Negative Negative ANDREW Comment:Testing performed by : [address], [address] RSV RNA Negative Negative ANDREW Comment: Interpretive data: Testing performed by [facility]. This test is performed using the [employer] Xpert Xpress CoV-2/Flu/RSV plus assay. This is a multiplex, real-time reverse transcriptase PCR assay intended for the qualitative detection of nucleic acid from SARS-CoV-2, influenza A, influenza B, and respiratory syncytial virus. This assay has been cleared by the [place] Food and Drug administration. The performance characteristics have been verified by the [facility]. Results must be considered in the clinical context, and a negative result does not rule out infection. Interpretive Data last revised 2023 Testing performed by: [address] [address] Nasopharyngeal 09/02/2024 9: 04 AM CDT 09/02/2024 9:09 AM CDT Narrative ANDREW - 09/02/2024 9:54 AM CDT Is the Patient experiencing symptoms consistent with COVID?->Yes Jesus Hernandez DO LAB MICROBIOLOGY - GENERAL ORDERABLES Final Result ANDREW [address] [facility] [place] [address] from Last 3 Months Insurance [employer] [place] [employer] [place] Care Teams Replenisher Relationship Specialty Start Date End Date Yimi Mark MD [address] [facility] [address] [place] [address] PCP - General Family Medicine 12/01/22
--- OUTSIDE RECORDS SUMMARY | 2024-11-22 15:16 | XMS_ITS | Referral Summary ---
Author Organization [facility] Address [address] [place] [id number] Care Team Providers Care Requirements Manager Name Role Phone Yimi Mark MD Primary Care Provider Encounters Date Type Department Care Team Description 09/04/2024 8:09 AM CDT - 09/04/2024 10:34 AM T Emergency [facility] Emergency Department [address] [place] [id number] Leg pain, anterior, left (Primary Dx) Discharge Disposition: Discharge to home or self care 09/02/2024 10:48 AM CDT - 09/02/2024 1:41 PM T Emergency [facility] Emergency Department [address] [place] [id number] Wheezing (Primary Dx); Leukocytosis, unspecified type; [...] on file Legal Sex Male 6:20 PM [employer] Gender Identity Not on file Sexual Orientation [...] Papi Stewart M.D. LB: LADARIUS Report ID: [id number] Reading Location: [id number] Procedure Note Papi Stewart MD - 09/04/2024 [...] Papi Stewart M.D. LB: LADARIUS Report ID: [id number] Reading Location: [place] [address] us Jesus Hernandez DO IMG XR PROCEDURES Final Res ult * Troponin T high-sensitivity series (baseline, 2hr, 4hr, 6hr) (09/02/2024 10:50 AM CDT) [facility] Trop T hs 7 <=22 ng/L Comment: Interpretive Data For further hscTnT resources including the diagnostic algorithm and an aid in interpretation, copy and paste this link: https://nrl.testcatalog.org/show/hsTrop Current Interpretive Data last revised 2020. Testing performed by: [facility], [address] [place] [address]., [address] Blood 09/02/2024 10:5 0 AM CDT 09/02/2024 10:55 AM CDT us Johanne VALLES LAB BLOOD ORDERABLES Final Resu lt ANDREW [address] [facility] Department [place] [address] * eGFR (09/02/2024 10:50 AM CDT) Pathologist [facility] eGFR >90 >=60 mL/min/1. 73 m2 Comment: [...] last reviewed 2021. Testing performed by: [address] [address] Blood 09/02/2024 10:5 0 AM CDT 09/02/2024 10:55 AM CDT us Johanne VALLES LAB BLOOD ORDERABLES Final Resu lt ANDREW [place] [address] [facility] Department [place] [address] * (ABNORMAL) CBC with auto differential (09/02/2024 10:50 AM CDT) Pathologist [facility] WBC 17.6(H) 3.8 - 9.9 K/cumm Comment:Testing performed by : [address] [address] Hgb 15.1 13.0 - 17.5 g/dL ANDREW [place] Comment:Testing performed by : [address] [address] Hct 43.7 38.9 - 50.3 % ANDREW [place] Comment:Testing performed by : [address] [address] Plt 219 150 - 400 K/cumm ANDREW [place] Comment:Testing performed by : [address] [address] MPV 10.2 9.1 - 12.3 fL ANDREW [place] Comment:Testing performed by : [address], [address] RBC 5.32 4.30 - 5.80 M/cumm ANDREW [place] Comment:Testing performed by : [address], [address] MCV 82.1 81.3 - 96.4 fL ANDREW [place]ILTON Comment:Testing performed by : [address], [address] MCH 28.4 27.1 - 33.3 pg ANDREW [place] Comment:Testing performed by : [address], [address] MCHC 34.6 32.3 - 35.7 g/dL ANDREW [place] Comment:Testing performed by : [address], [address] RDW CV 12.1 11.1 - 14.9 % ANDREW [place]ILTON Comment:Testing performed by : [address], [address] RDW SD 36.1 35.7 - 48.1 fL ANDREW [place] Comment:Testing performed by : [address], [address] NRBC abs 0.02(H) 0.00 - 0.01 K/cumm ANDREW Comment:Testing performed by : [address], [address] Blood 09/02/2024 10:5 0 AM CDT 09/02/2024 10:55 AM CDT us Johanne VALLES LAB BLOOD ORDERABLES Edited Res ult - Final ANDREW [address] [facility] Department [place] [address] * (ABNORMAL) Manual Differential (09/02/2024 10:50 AM CDT) Differential Manual Comment:Testing performed by : [address] [address] Cells Counted 100 [facility] Comment:Testing performed by : [address], [place]., [address] Neutrophil abs 5.3 1.5 - 6.5 K/cumm [facility] Comment:Testing performed by : [address], [place]., [address] Imm gran abs 0.0 0.0 - 0.1 K/cumm [facility] Comment:Testing performed by : [address], [place]., [address] Lymphocyte abs 11.6(H) 0.8 - 3.3 K/cumm [facility] Comment:Testing performed by : [address], [place]., [address] Monocyte abs 0.2 0.2 - 0.8 K/cumm [facility] Comment:Testing performed by : [address], [place]., [address] Eosinophil abs 0.5 0.0 - 0.5 K/cumm [facility] Comment:Testing performed by : [address] [address] Neutrophil pct 30.0 % [facility] Comment: Interpretive Data Percent cell count reference ranges are not reported, since discordance with absolute values may lead to misinterpretation of CBC data. Current Interpretive Data was last revised on 2017. Testing performed by: [address] [address] Lymphocyte pct 24.0 % [facility] Comment: Interpretive Data Percent cell count reference ranges are not reported, since discordance with absolute values may lead to misinterpretation of CBC data. Current Interpretive Data was last revised on 2017. Testing performed by: [address] [address] Monocyte pct 1.0 % [facility] Comment: Interpretive Data Percent cell count reference ranges are not reported, since discordance with absolute values may lead to misinterpretation of CBC data. Current Interpretive Data was last revised on 2017. Testing performed by: [address] [address] Eosinophil pct 3.0 % ANDREW [place] Comment: Interpretive Data Percent cell count reference ranges are not reported, since discordance with absolute values may lead to misinterpretation of CBC data. Current Interpretive Data was last revised on 2017. Testing performed by: [facility], [address] [place] [address], [place]., [address] Variant lymph pct 42.0(H) 0.0 - 0.0 % ANDREW [place] Comment:Testing performed by : [address], [place]., [address] RBC morphology Consistent with RBC Indicies ANDREW [place] Comment:Testing performed by : [address] [address] Platelet estimate Adequate ANDREW [place] Comment:Testing performed by : [address], [place]., [address] Blood 09/02/2024 10:5 0 AM CDT 09/02/2024 10:55 AM CDT us Johanne VALLES LAB BLOOD ORDERABLES Final Resu lt ANDREW [facility] Department [place] [address] * Comprehensive metabolic panel (09/02/2024 10:50 AM CDT) Sodium 141 135 - 145 mmol/L Comment:Testing performed by : [address] [address] Potassium, pl 4.2 3.3 - 4.9 mmol/L ANDREW [place] Comment:Testing performed by : [address] [address] Chloride 107 97 - 110 mmol/L ANDREW [place] Comment:Testing performed by : [address] [address] CO2 27 22 - 32 mmol/L ANDREW [place] Comment:Testing performed by : [address] [address] Anion gap 7 2 - 15 mmol/L ANDREW [place] Comment:Testing performed by : [address] [address] BUN 14 6 - 25 mg/dL ANDREW Comment:Testing performed by : [address] [address] Creatinine 0.92 0.80 - 1.30 mg/dL ANDREW Comment:Testing performed by : [address] [address] Glucose 112 70 - 199 mg/dL ANDREW [...] last revised 2022. Testing performed by: [address] [address] Calcium 9.7 8.5 - 10.3 mg/dL ANDREW Comment:Testing performed by : [address] [address] Bilirubin, total 0.7 0.1 - 1.2 mg/dL ANDREW Comment:Testing performed by : [address] [address] Protein, pl 7.5 6.5 - 8.5 g/dL ANDREW Comment:Testing performed by : [address] [address] Albumin 4.5 3.5 - 5.0 g/dL ANDREW Comment:Testing performed by : [address] [address] Alk phos 75 40 - 130 Units/L ANDREW Comment:Testing performed by : [address] [address] ALT 13 7 - 55 Units/L ANDREW Comment:Testing performed by : [address] [address] AST 17 10 - 50 Units/L ANDREW Comment:Testing performed by : [facility], [address] [place] [address], [place]., [address] Blood 09/02/2024 10:5 0 AM CDT 09/02/2024 10:55 AM CDT Johanne VALLES LAB BLOOD ORDERABLES Final Resu lt Performing Organization Address City/[facility]/ZIP Co de Phone Number ANDREW [address] [facility] Department [place] [address] * ECG 12 lead (09/02/2024 10:44 AM CDT) Ventricular Rate EKG/Min 79 BPM [facility] Atrial Rate 79 BPM [facility] MI-Interval (MSEC) 150 ms [facility] QRS-Interval (MSEC) 86 ms [facility] QT-Interval (MSEC) 372 ms [facility] QTc 426 ms [facility] P [place] 66 degrees [facility] R [place] -33 degrees [facility] T [place] 19 degrees [facility] Diagnosis Normal sinus rhythm Left axis deviation . T-wave changes When compared with ECG of 18-APR-2023 11:49, No significant change was found Confirmed by SULTAN TURNRE M.D. ([id number]) on 09/02/2024 3:09:57 PM [facility] 09/02/2024 10:4 4 AM CDT 09/02/2024 3:09 PM CDT Johanne VALLES ECG ORDERABLES Final Result Performing Organization Address [facility]/ZIP Co de Phone Number [facility]Texted [facility] * XR Chest 1 Vw Portable (09/02/2024 [...] Penny Merchant M.D. FT: FT Report ID: [id number] Reading Location: [id number] Procedure Note Penny Hansen MD - 09/02/2024 [...] Penny Merchant M.D. FT: FT Report ID: [id number] Reading Location: [id number] us Jesus Hernandez DO IMG XR PROCEDURES Final Res ult * Influenza A/B, RSV, and COVID-19 PCR Nasopharyngeal (09/02/2024 9:04 AM CDT) Pathologist [facility] COVID-19 RNA Negative Negative Comment:Testing performed by : [facility], [address] [place] [address], [place]., [address] Influenza A RNA Negative Negative [facility] Comment:Testing performed by : [address] [address] Influenza B RNA Negative Negative [facility] Comment:Testing performed by : [address] [address] RSV RNA Negative Negative [facility] Comment: Interpretive data: Testing performed by [facility]. This test is performed using the [employer] Xpert Xpress CoV-2/Flu/RSV plus assay. This is a multiplex, real-time reverse transcriptase PCR assay intended for the qualitative detection of nucleic acid from SARS-CoV-2, influenza A, influenza B, and respiratory syncytial virus. This assay has been cleared by the [place] Food and Drug administration. The performance characteristics have been verified by the [facility]. Results must be considered in the clinical context, and a negative result does not rule out infection. Interpretive Data last revised 2023 Testing performed by: [address] [address] Nasopharyngeal 09/02/2024 9: 04 AM CDT 09/02/2024 9:09 AM CDT Narrative [facility] - 09/02/2024 9:54 AM CDT Is the Patient experiencing symptoms consistent with COVID?->Yes Jesus Hernandez DO LAB MICROBIOLOGY - GENERAL ORDERABLES Final Result Performing Organization Address City/State/[facility] Co de Phone Number ANDREW [address] [facility] Department [place] [address] from Last 3 Months Insurance [facility] Care Teams Requirements Manager Relationship Specialty Start Date End Date Yimi Mark MD [address] [facility] [address] [place] [address] PCP - General Family Medicine 12/01/22
== END 2024-11-22 15:11 | disposition home or self-care (01) ==
PROVIDERS: PCP Family Medicine; Visit Provider Orthopaedic Surgery
DX: S80.12XA Contusion of left lower leg, initial encounter (principal); X58.XXXA Exposure to other specified factors, initial encounter
CPT/HCPCS: 73718